=== PATIENT | female | born 1975 | race African-American/Black ===

== ENCOUNTER 2019-05-20 15:11 | Emergency (ER) | payer MEDICAID, OTHER ==
[~2019-05-20] VITALS: Ht 167.6 cm; Wt 104.3 kg
[~2019-05-20 15:11] MED LIST: ATIVAN0.5 MG ORAL; LITHIUM CARBON150 MG ORAL; MIRALAX17 G2 ORAL; NEXIUM20 MG ORAL; NORVASC5 MG ORAL; PEPCID40 MG PO; QUETIAPINE FUM100 MG ORAL; WELLBUTRIN75 MG ORAL; ZANTAC150 MG ORAL; ZOFRAN ODT8 MG ORAL; ZOLOFT25 MG ORAL
[2019-05-20 15:21] VITALS: BP 152/92
[2019-05-20] MEDS ORDERED: HYDROCHLOROTH12.5 M2 ORAL (15:21)
--- NOTE | 2019-05-20 15:21 | NUR ---
ED Nurse Note: Patient walked in to ER due to nausea, vomiting, abdominal pain x 2 days. Denies any chest pain. No episode of vomiting at this time. No SOB. Breathing even and unlabored. Afebrile. VSS. at bedside.
--- NOTE | 2019-05-20 16:10 | NUR ---
ED Nurse Note: IV line established. Blood and urine collected and sent to lab.
[2019-05-20 16:26] LABS: APPEARANCE,URINE CLOUDY; BASOPHILS % (AUTO) 1.3 % (0.0-2.0); BILIRUBIN, URINE NEGATIVE (NEGATIVE); COLOR,URINE PALE YELLOW; EOSINOPHILS % (AUTO) 0.2 % (0.0-3.0); GLUCOSE, URINE (UA) NEGATIVE (NEGATIVE); HEMOGLOBIN 13.7 G/DL (12.0-16.0); KETONES,URINE 1+ (NEGATIVE); LEUKOCYTE ESTERASE ,URINE NEGATIVE (NEGATIVE); LYMPHOCYTES % (AUTO) 19.4 % (20.0-45.0); MEAN CORPUSCULAR VOLUME 80 FL (80-99); MONOCYTES % (AUTO) 6.1 % (1.0-10.0); NITRITE,URINE NEGATIVE (NEGATIVE); PH,URINE 6 (4.5-8.0); PLATELET COUNT 190 K/UL (150-450); PROTEIN,URINE 2+ (NEGATIVE); RED BLOOD COUNT 5.24 M/UL (4.20-5.40); RED CELL DISTRIBUTION WIDTH 16.5 % (11.6-14.8); UROBILINOGEN,URINE NORMAL MG/DL (0.0-1.0)
[2019-05-20 16:37] LABS: ANION GAP 9 mmol/L (5-15); BLOOD UREA NITROGEN 7 mg/dL (7-18); CALCIUM 8.1 MG/DL (8.5-10.1); CARBON DIOXIDE 32 MMOL/L (21-32); CHLORIDE 95 MMOL/L (98-107); CREATININE 0.8 MG/DL (0.55-1.30); POTASSIUM 3.8 MMOL/L (3.5-5.1); SODIUM 136 MMOL/L (136-145)
[2019-05-20] MEDS ORDERED: Mylanta II UD 30ml ORAL ONE (16:45)
[2019-05-20] MEDS ORDERED: Dicyclomine HCl 10mg/5ml oral soln ORAL ONE (16:45)
[2019-05-20] MEDS ORDERED: Lidocaine 2% Visc 15ml soln ORAL ONE (16:45)
[2019-05-20 16:47] LABS: ALANINE AMINOTRANSFERASE 148 U/L (12-78); ALBUMIN 3.5 G/DL (3.4-5.0); ALBUMIN/GLOBULIN RATIO 0.8 (1.0-2.7); ALKALINE PHOSPHATASE 84 U/L (46-116); ASPARTATE AMINO TRANSFERASE 533 U/L (15-37); BILIRUBIN,TOTAL 1.4 MG/DL (0.2-1.0)
[2019-05-20 16:48] LABS: BILIRUBIN,DIRECT 0.3 MG/DL (0.0-0.3)
--- NOTE | 2019-05-20 17:25 | NUR ---
ED Nurse Note: Pt taken for CT.
--- NOTE | 2019-05-20 17:28 | Emergency Room Report ---
History of Present Illness General Chief Complaint: Abdominal Pain Source: Patient Present Illness HPI 43-year-old female presents to the emergency department complaining of 9 out of 10 severity diffuse abdominal pain with nausea, vomiting and diarrhea. Patient reports she is unable to keep anything down including liquids. Patient denies recent travel or ill contacts. Patient states she is currently taking lithium and Ativan as needed. Patient denies suspicion of . She reports last menstrual cycle was abnormal and wasn't as long as it normally is. Pt. denies fevers or chills. She denies blood in the vomit or stool. She reports not passing " as much gas" as she would expect. Denies heavy alcohol intake. Denies urgency, frequency, hematuria or dysuria. She reports abdominal pain improves with wrapping a tight band around her stomach. Denies bloating or abdominal hardness. Hx of gastritis, anxiety and HTN. Denies dizziness, RAMIRES, Syncope, weakness, CP or SOB. Allergies: Coded Allergies: SERTRALINE (Unverified Allergy, Unknown, 02/22/15) Patient History Past Medical History: see triage record, HTN, GERD Past Surgical History: none Pertinent Family History: none Now: No Reviewed Nursing Documentation: PMH: Agreed; PSxH: Agreed Nursing Documentation-PMH Past Medical History: No History, Except For Hx Cardiac Problems: Yes Hx Hypertension: Yes Hx Pacemaker: No Hx Asthma: No Hx COPD: No Hx Diabetes: No Hx Cancer: No Hx Gastrointestinal Problems: Yes Hx Dialysis: No Hx Neurological Problems: No Hx Cerebrovascular Accident: No Hx Seizures: No Review of Systems All Other Systems: negative except mentioned in HPI Physical Exam Vital Signs Date Time Temp Pulse Resp B/P (MAP) Pulse Ox O2 Delivery O2 Flow Rate FiO2 05/20/19 15:15 98.2 79 17 161/116 (131) 99 Room Air Sp02 EP Interpretation: reviewed, normal General Appearance: no apparent distress, alert, GCS 15, non-toxic Head: normocephalic, atraumatic Eyes: bilateral eye normal inspection, bilateral eye PERRL ENT: hearing grossly normal, normal voice, moist mucus membranes Neck: full range of motion, no bony tend Respiratory: lungs clear, normal breath sounds, speaking full sentences Cardiovascular #1: regular rate, rhythm Gastrointestinal: normal bowel sounds, non tender, soft Rectal: deferred Genitourinary: normal inspection Musculoskeletal: back normal, gait/station normal, normal range of motion, non- tender Neurologic: alert, oriented x3, responsive, motor strength/tone normal, sensory intact, speech normal, grossly normal Psychiatric: judgement/insight normal Lymphatic: no adenopathy Medical Decision Making PA Attestation Dr. Santiago is my supervising Physician whom patient management has been discussed with. Diagnostic Impression: Primary Impression: Abdominal pain Qualified Codes: R10.84 - Generalized abdominal pain Additional Impressions: Nausea, vomiting and diarrhea Elevated liver function tests ER Course 43-year-old female presents to the emergency department complaining of 9 out of 10 severity diffuse abdominal pain with nausea, vomiting and diarrhea. Patient reports she is unable to keep anything down including liquids. Patient denies recent travel or ill contacts. Patient states she is currently taking lithium and Ativan as needed. Patient denies suspicion of . She reports last menstrual cycle was abnormal and wasn't as long as it normally is. Pt. denies fevers or chills. She denies blood in the vomit or stool. She reports not passing " as much gas" as she would expect. Denies heavy alcohol intake. Denies urgency, frequency, hematuria or dysuria. She reports abdominal pain improves with wrapping a tight band around her stomach. Denies bloating or abdominal hardness. Hx of gastritis, anxiety and HTN. Denies dizziness, RAMIRES, Syncope, weakness, CP or SOB. Ddx considered but are not limited to Diverticulitis, acute appy, diarrhea,UC, PUD, GE, pancreatitis, gallstone, ovarian torsion, ectopic , PID tubo-ovarian abscess. Vital signs: are WNL, pt. is afebrile H&PE are most consistent with generalized abdominal pain with vomiting and diarrhea, no significant dehydration noted, low suspicion of acute abdomen on PE. Pt. is non-toxic in appearance and NAD. no active vomiting at this time. ORDERS: -CBC: WNL - CMP: Elevated LFT's - LIPASE:WNL -UA: Most indicative of contamination: presence of equal amounts of bacteria and squamous cells, no elevation in inflammatory markers, nitrite negative. -URINE HCG:Negative -CT Abdomen and Pelvis w. contrast.: Unremarkable other than : Renal cysts and fatty liver. Radiologist comments on mild evidence of colitis & enteritis. ED INTERVENTIONS: -PO zofran 4mg - 1 Liter Bolus NS Fluids - Bentyl PO -Mylanta PO -Lidocaine PO After above interventions this patient successfully completed oral fluid challenge without nausea or vomiting. DISCHARGE: At this time pt. is stable for d/c to home. Will provide printed patient care instructions, and any necessary prescriptions. Care plan and follow up instructions have been discussed with the patient prior to discharge. Labs Test 05/20/19 16:10 White Blood Count 7.0 K/UL (4.8-10.8) Red Blood Count 5.24 M/UL (4.20-5.40) Hemoglobin 13.7 G/DL (12.0-16.0) Hematocrit 42.0 % (37.0-47.0) Mean Corpuscular Volume 80 FL (80-99) Mean Corpuscular Hemoglobin 26.2 PG (27.0-31.0) Mean Corpuscular Hemoglobin Concent 32.6 G/DL (32.0-36.0) Red Cell Distribution Width 16.5 % (11.6-14.8) Platelet Count 190 K/UL (150-450) Mean Platelet Volume 7.4 FL (6.5-10.1) Neutrophils (%) (Auto) 73.0 % (45.0-75.0) Lymphocytes (%) (Auto) 19.4 % (20.0-45.0) Monocytes (%) (Auto) 6.1 % (1.0-10.0) Eosinophils (%) (Auto) 0.2 % (0.0-3.0) Basophils (%) (Auto) 1.3 % (0.0-2.0) Urine Color Pale yellow Urine Appearance Cloudy Urine pH 6 (4.5-8.0) Urine Specific [place] 1.015 (1.005-1.035) Urine Protein 2+ (NEGATIVE) Urine Glucose (UA) Negative (NEGATIVE) Urine Ketones 1+ (NEGATIVE) Urine Blood 5+ (NEGATIVE) Urine Nitrite Negative (NEGATIVE) Urine Bilirubin Negative (NEGATIVE) Urine Urobilinogen Normal MG/DL (0.0-1.0) Urine Leukocyte Esterase Negative (NEGATIVE) Urine RBC 10-15 /HPF (0 - 2) Urine WBC 0-2 /HPF (0 - 2) Urine Squamous Epithelial Cells Many /LPF (NONE/OCC) Urine Bacteria Moderate /HPF (NONE) Urine HCG, Qualitative Negative (NEGATIVE) Sodium Level 136 MMOL/L (136-145) Potassium Level 3.8 MMOL/L (3.5-5.1) Chloride Level 95 MMOL/L (98-107) Carbon Dioxide Level 32 MMOL/L (21-32) Anion Gap 9 mmol/L (5-15) Blood Urea Nitrogen 7 mg/dL (7-18) Creatinine 0.8 MG/DL (0.55-1.30) Estimat Glomerular Filtration Rate > 60 mL/min (>60) Glucose Level 138 MG/DL (74-106) Calcium Level 8.1 MG/DL (8.5-10.1) Total Bilirubin 1.4 MG/DL (0.2-1.0) Direct Bilirubin 0.3 MG/DL (0.0-0.3) Aspartate Amino Transf (AST/SGOT) 533 U/L (15-37) Alanine Aminotransferase (ALT/SGPT) 148 U/L (12-78) Alkaline Phosphatase 84 U/L (46-116) Total Protein 7.8 G/DL (6.4-8.2) Albumin 3.5 G/DL (3.4-5.0) Globulin 4.3 g/dL Albumin/Globulin Ratio 0.8 (1.0-2.7) Lipase 183 U/L (73-393) CT/MRI/US Diagnostic Results CT/MRI/US Diagnostic Results : Imaging Test Ordered: CT Abdomen and Pelvis w. contrast. Impression " No acute pathology. Commented on Renal cysts and fatty liver. Radiologist comments on mild evidence of colitis & enteritis." Per official radiology report - Please see report for specific details. Last Vital Signs Date Time Temp Pulse Resp B/P (MAP) Pulse Ox O2 Delivery O2 Flow Rate FiO2 05/20/19 15:15 98.2 79 17 161/116 (131) 99 Room Air Status: improved Disposition: HOME, SELF-CARE Condition: Stable Scripts Famotidine* (Pepcid 20mg tablet*) 20 Mg Tablet 20 MG ORAL TWICE A DAY for 7 Days, #14 TAB 0 Refills Prov: Karla Aleman 05/20/19 Dicyclomine Hcl* (DICYCLOMINE HCL*) 10 Mg Capsule 10 MG ORAL QID for 4 Days, #16 CAP Prov: Karla Aleman 05/20/19 Ondansetron Odt* (ZOFRAN ODT*) 4 Mg Tab.rapdis 4 MG BC EVERY 6 HOURS PRN for Nausea & Vomiting, #12 TAB 0 Refills Prov: Karla Aleman 05/20/19 Referrals: [facility],REFERR[facility] (PCP) Patient Instructions: Abdominal Pain, Adult Additional Instructions: Take medications as directed. Follow up with a Primary Care Provider in 3-5 days, even if your symptoms have resolved. --Please review list of primary care clinics, if you do not already have a primary care provider Return sooner to ED if new symptoms occur, or current symptoms become worse. - Please note that this Emergency Department Report was dictated using [employer] compiler technology software, occasionally this can lead to erroneous entry secondary to interpretation by the dictation equipment. Karla Aleman May 20, 2019 17:28
[2019-05-20] MEDS ORDERED: Omnipaque-300 100ml vial INJ PRN (17:30)
--- NOTE | 2019-05-20 17:43 | NUR ---
ED Nurse Note: Pt came back from CT.
[2019-05-20 17:54] VITALS: BP 152/101
--- NOTE | 2019-05-20 18:23 | Diagnostic Imaging Report ---
Indication: Abdominal pain Technique: Continuous helical transaxial imaging of the abdomen and pelvis was obtained from the lung bases to the pubic symphysis during intravenous contrast administration. Coronal 2-D reformats were also obtained. Study obtained in a Siemens sensation [address] Automatic Exposure Control was utilized. Total Dose length Product (DLP): 1050.[address] Dose Index Volume (CTDIvol): 2.3 mGy Comparison: None Findings: The lung bases are clear. The liver is diffusely hypodense consistent with fatty infiltration and is also enlarged measuring approximately 22 cm. Spleen is normal in size. Pancreas is unremarkable. The gallbladder is distended without obvious gallstones demonstrated on this examination. Both kidneys enhance symmetrically. There is a central cyst in the lower pole the right kidney measuring 1.4 cm. Smaller right renal cyst also noted. Appendix is normal. There is no hydronephrosis. Uterus noted. There is no evidence of ascites or free air. There is no evidence of bowel obstruction. There is a pars interarticularis defect at L5 bilaterally. There is vacuum phenomenon narrowing of the L5-S1 disc and a mild anterolisthesis at this level. There is moderate narrowing of the bony neural foramina at L5-S1. IMPRESSION: Hepatomegaly with fatty infiltration. Mildly distended gallbladder. No definite gallstone seen on this exam. Please correlate clinically. Normal appendix Right renal cysts L5 spondylolysis. Grade 1 spondylolisthesis L5 on S1. The CT scanner at [facility] is accredited by the [employer] and the scans are performed using dose optimization techniques as appropriate to a performed exam including Automatic Exposure control.
[2019-05-20] MEDS ORDERED: FAMOTIDINE20 MG ORAL (18:51)
[2019-05-20] MEDS ORDERED: DICYCLOMINE HCL10 MG ORAL (18:51)
[2019-05-20] MEDS ORDERED: ONDANSETRON ODT4 MG BC (18:51)
--- NOTE | 2019-05-20 19:10 | NUR ---
HAND-OFF: Report given to Mee DASILVA. Endorsed plan of care. No new further order at this time.
[2019-05-20 19:20] VITALS: BP 152/101
--- NOTE | 2019-05-20 19:20 | NUR ---
ER DISCHARGE NOTE: Patient is cleared to be discharged per ERMD, pt is aox4, on room air, with stable vital signs. accompied by family member. pt was given dc and prescription instructions, pt was able to verbalize understanding, pt id band and iv site removed without complications. pt is able to ambulate with steady gait. pt took all belongings.
== END 2019-05-20 19:20 | disposition home or self-care (01) ==
LOC: EMR 15:52
DX: R10.84 Generalized abdominal pain (principal); R11.2 Nausea with vomiting, unspecified; R19.7 Diarrhea, unspecified; R79.89 Other specified abnormal findings of blood chemistry; I10 Essential (primary) hypertension; K21.9 Gastro-esophageal reflux disease without esophagitis; Z88.8 Allergy status to other drugs, medicaments and biological substances; K76.0 Fatty (change of) liver, not elsewhere classified; N28.1 Cyst of kidney, acquired; M47.9 Spondylosis, unspecified
CPT/HCPCS: 36415; 74177; 80053; 81003; 81025; 82248; 83690; 85025; 87086; 96361; 96374; 99284; J2405; Q9967; J7030